=== PATIENT | male | born 1985 | race Hispanic/Latino ===

== ENCOUNTER 2018-12-21 04:44 | Emergency (ER) | payer BC ==
[2018-12-21 04:58] VITALS: BP 122/76; PULSE 81; RESP 17; TEMP 97.8; O2SAT 97
[2018-12-21] MEDS ORDERED: Tdap Vaccine 0.5 ml Vial (10-64 yrs) IM ONE ×2 (05:13→06:41)
--- NOTE | 2018-12-21 05:16 | ED PDOC ---
HPI: General Adult Time Seen by Provider: 12/21/18 05:13 Chief Complaint (Nursing): Abnormal Skin Integrity Chief Complaint (Provider): facial laceration History Per: Patient (33 y/o male here with facial laceration that occurred when he tripped walking upstairs at home. Denies any LOC. Admits etoh use.) Past Medical History Reviewed: Historical Data, Nursing Documentation, Vital Signs Vital Signs: Last Vital Signs Temp 97.8 F 12/21/18 04:55 Pulse 81 12/21/18 04:55 Resp 17 12/21/18 04:55 BP 122/76 12/21/18 04:55 Pulse Ox 97 12/21/18 04:55 - Family History Family History: States: No Known Family Hx - Home Medications Home Medications: Ambulatory Orders Medication Instructions Recorded Bacitracin Ointment [Bacitracin] 0.5 gm TOP BID #1 tube 12/21/18 Cephalexin [Keflex] 500 mg PO QID #20 capsule 12/21/18 - Allergies Allergies/Adverse Reactions: Allergies Allergy/AdvReac Type Severity Reaction Status Date / Time No Known Allergies Allergy Verified 12/21/18 04:58 Review of Systems ROS Statement: Except As Marked, All Systems Reviewed And Found Negative Physical Exam - Reviewed Nursing Documentation Reviewed: Yes Vital Signs Reviewed: Yes - Physical Exam Appears: Positive for: Well, Non-toxic, No Acute Distress Head Exam: Positive for: NORMAL INSPECTION, NORMOCEPHALIC. Negative for: ATRAUMATIC (2.5 cm laceration right lateral face involving eyebrow) Skin: Positive for: Normal Color, Warm, DRY Eye Exam: Positive for: EOMI, Normal appearance, PERRL ENT: Positive for: Normal ENT Inspection Neck: Positive for: Normal, Painless ROM Cardiovascular/Chest: Positive for: Regular Rate, Rhythm Respiratory: Positive for: CNT, Normal Breath Sounds Gastrointestinal/Abdominal: Positive for: Normal Exam, Soft Back: Positive for: Normal Inspection Extremity: Positive for: Normal ROM Neurological/Psych: Positive for: Awake, Alert, Normal Tone - ECG O2 Sat by Pulse Oximetry: 97 - Progress ED Course And Treament: tdap 0.5 ml IM x [address]/orbital facial wnl Medical Decision Making Medical Decision Makin:16 CT Head FINDINGS: BRAIN No acute intraparenchymal hemorrhage. No mass lesion. No CT evidence for acute territorial infarct. No midline shift or extra-axial collections. VENTRICLES: No hydrocephalus. ORBITS: The orbits are unremarkable. SINUSES AND MASTOIDS: The paranasal sinuses and mastoid air cells are clear. BONES: No fracture. SOFT TISSUES: Unremarkable. IMPRESSION: No acute intracranial abnormality. 06:18 CT Maxillofacial FINDINGS: BONES: No acute fracture or aggressive appearing osseous lesion. The mandible is intact. SOFT TISSUES: The soft tissues are unremarkable. SINUSES: The sinuses are clear. ORBITS: The orbits are normal. No retrobulbar hematoma or mass. IMPRESSION: Unremarkable maxillofacial CT. Disposition - Clinical Impression Clinical Impression: Facial injury, Head injury, Complex laceration of right eyebrow - Patient ED Disposition Is Patient to be Admitted: No - Disposition Disposition: Routine/Home Disposition Time: 06:40 Condition: FAIR Additional Instructions: RETURN IN 4-5 DAYS TO REMOVE YOUR SUTURES. ASK FOR VERA ON SATURDAY EVENING AT 6PM Prescriptions: Bacitracin Ointment [Bacitracin] 0.5 gm TOP BID #1 tube Cephalexin [Keflex] 500 mg PO QID #20 capsule Instructions: Closed Head Injury (DC), Laceration Repair With Stitches (DC) Forms: [facility] ED School/Work Excuse Procedure: Wound Repair - Time Performed Time Performed: 05:16 - Time Out Time Out: Site verified - Consent Obtained Consent obtained: Verbal - Performed by Performed by: Mid-level Provider - Indications Indication(s):: Laceration - Location Location:: Right, Eyebrow Shape:: Linear Dimensions Length cm: 2.25cm Depth:: Epidermis - Anesthetic Technique Local/Regional Anesthetic:: Lidocaine 2% w/epi - Debris Debris:: None - Irrigated Irrigated with ml of normal saline: 150ml - Complexity Complexity:: Intermediate (2 layer) - Wound repair method Sutures:: # (Two 6-0 vicryl subcutaneous sutures placed; eight 6-0 prolene interrupted sutures placed external.) - Muscle repiar layer closed with Muscle repair layer closed with:: Abx ointment applied, Tetanus ordered - Patient tolerated procedure Patient Tolerated Procedure:: Well
--- NOTE | 2018-12-21 10:23 | CT ---
Date of service: 12/21/2018 PROCEDURE: CT HEAD WITHOUT CONTRAST. HISTORY: head injruy COMPARISON: CT sinus same day TECHNIQUE: Axial computed tomography images were obtained through the head/brain without intravenous contrast. Radiation dose: Total exam DLP = 812 mGy-cm. This CT exam was performed using one or more of the following dose reduction techniques: Automated exposure control, adjustment of the mA and/or kV according to patient size, and/or use of iterative reconstruction technique. FINDINGS: HEMORRHAGE: No intracranial hemorrhage. BRAIN: No mass effect or edema. No atrophy or chronic microvascular ischemic changes. VENTRICLES: Unremarkable. No hydrocephalus. CALVARIUM: Unremarkable. PARANASAL SINUSES: Unremarkable as visualized. No significant inflammatory changes. MASTOID AIR CELLS: Unremarkable as visualized. No inflammatory changes. OTHER FINDINGS: There is mild soft tissue swelling overlying the right lateral orbit retro-orbital region is unremarkable. IMPRESSION: Unremarkable CT scan of the head. No appreciable intracranial trauma related injury. This agrees with preliminary report.
--- NOTE | 2018-12-21 10:26 | CT ---
Date of service: 12/21/2018 PROCEDURE: CT MAXILLOFACIAL BONES WITHOUT CONTRAST HISTORY: facial injury COMPARISON: None available. TECHNIQUE: Contiguous axial CT images of the maxillofacial bones were obtained. Coronal and sagittal reformats were generated. Radiation dose: Total exam DLP = 1614.86 mGy-cm. This CT exam was performed using one or more of the following dose reduction techniques: Automated exposure control, adjustment of the mA and/or kV according to patient size, and/or use of iterative reconstruction technique. FINDINGS: NASAL BONES: Unremarkable. ORBITS: Mild soft tissue swelling is seen overlying the right lateral orbit region. No fracture of the orbit, zygoma, or zygomatic or frontal suture region is seen. PARANASAL SINUSES/ MASTOIDS: Grossly clear sinuses without air-fluid level. Ostiomeatal complexes appear patent. No nasal cavity masses are noted. MAXILLA: Unremarkable. MANDIBLE/ TEMPOROMANDIBULAR JOINTS: No fracture of the temporomandibular joint or mandible. Impacted wisdom teeth are seen posteriorly in the mandible region and upper maxilla on the left. SKULL BASE: Unremarkable. TEMPORAL BONES: Middle ears and mastoid grossly unremarkable. OTHER FINDINGS: None. IMPRESSION: No appreciable facial bone fracture. This agrees with preliminary report.
== END 2018-12-21 06:55 | disposition home or self-care (01) ==
LOC: H.ER 04:44
DX: S09.90XA Unspecified injury of head, initial encounter (principal); S01.111A Laceration without foreign body of right eyelid and periocular area, initial encounter; W10.9XXA Fall (on) (from) unspecified stairs and steps, initial encounter; Z23 Encounter for immunization

== ENCOUNTER 2018-12-25 18:35 | Emergency (ER) | payer BC ==
[2018-12-25 19:17] VITALS: BP 113/66; PULSE 61; RESP 16; TEMP 98.2; O2SAT 99
--- NOTE | 2018-12-25 19:30 | ED PDOC ---
HPI: Wound Care - HPI Time Seen by Provider: 12/25/18 19:22 Chief Complaint (Nursing): Suture/Staple Removal Chief Complaint (Provider): SUTURE REMOVAL History Per: Patient (33 Y/O MALE SEEN 4 DAYS AGO FOR WOUND REPAIR OF EYEBROW LACERATION. NO FEVERS/CHILLS.) Past Medical History Reviewed: Historical Data, Nursing Documentation, Vital Signs Vital Signs: Last Vital Signs Temp 98.2 F 12/25/18 19:15 Pulse 61 12/25/18 19:15 Resp 16 12/25/18 19:15 BP 113/66 12/25/18 19:15 Pulse Ox 99 12/25/18 19:15 - Family History Family History: States: No Known Family Hx - Home Medications Home Medications: Ambulatory Orders Medication Instructions Recorded Bacitracin Ointment [Bacitracin] 0.5 gm TOP BID #1 tube 12/21/18 Cephalexin [Keflex] 500 mg PO QID #20 capsule 12/21/18 - Allergies Allergies/Adverse Reactions: Allergies Allergy/AdvReac Type Severity Reaction Status Date / Time No Known Allergies Allergy Verified 12/25/18 19:15 Review of Systems ROS Statement: Except As Marked, All Systems Reviewed And Found Negative Physical Exam - Reviewed Nursing Documentation Reviewed: Yes Vital Signs Reviewed: Yes - Physical Exam Appears: Positive for: Well, Non-toxic, No Acute Distress Head Exam: Positive for: NORMAL INSPECTION, NORMOCEPHALIC. Negative for: ATRAUMATIC (LEFT EYEBROW WITH SUTURES INTACT. NO SIGNS OF ERYTHEMA/INFECTION.) Skin: Positive for: Normal Color, Warm, DRY Eye Exam: Positive for: EOMI, Normal appearance, PERRL ENT: Positive for: Normal ENT Inspection Neck: Positive for: Normal, Painless ROM Cardiovascular/Chest: Positive for: Regular Rate, Rhythm Respiratory: Positive for: CNT, Normal Breath Sounds Gastrointestinal/Abdominal: Positive for: Normal Exam, Soft Back: Positive for: Normal Inspection Extremity: Positive for: Normal ROM Neurological/Psych: Positive for: Awake, Alert, Normal Tone - ECG O2 Sat by Pulse Oximetry: 99 - Progress ED Course And Treament: SUTURES REMOVED WITHOUT DIFFICULTY STERI-STRIPS PLACED Disposition - Clinical Impression Clinical Impression: Removal of suture - Patient ED Disposition Is Patient to be Admitted: No - Disposition Disposition: Routine/Home Disposition Time: 19:24 Condition: FAIR Instructions: Stitches Removal
== END 2018-12-25 20:30 | disposition home or self-care (01) ==
LOC: H.ER 18:35
DX: Z48.02 Encounter for removal of sutures (principal)